=== PATIENT | male | born 1955 | race Caucasian/White ===

== ENCOUNTER → 2020-10-23 14:38 | Outpatient (CLI) | payer BC, SELFPAY ==
--- NOTE | ~2020-10-23 | XR_ITS ---
EXAMINATION: XR elbow RT min 3V DATE: 10/23/2020 14:54 INDICATION: Right elbow pain TECHNIQUE: Anteroposterior, two oblique and lateral views of the right elbow were obtained. COMPARISON: None. FINDINGS: Alignment is normal. No fracture or joint effusion. Joint spaces are normal. Small enthesophyte at th e tip of the olecranon. Soft tissues are unremarkable. IMPRESSION: 1. No right elbow joint effusion or acute osseous abnormality. Reviewed, dictated and finalized at location B. ETING OPERATIONS INTERN
== END ==
PROVIDERS: PCP Physician Assistant; Visit Provider Physician Assistant
DX: M25.521 Pain in right elbow (principal)
CPT/HCPCS: 73080

== ENCOUNTER 2023-05-21 08:42 | Outpatient (CLI) | payer MEDICARE, SELFPAY | END 2023-05-21 08:43 | disposition home or self-care (01) | LOC: ANHSURGERY 08:46 | PROVIDERS: PCP Physician Assistant; Visit Provider Surgery | DX: K43.2 Incisional hernia without obstruction or gangrene (principal); Z01.818 Encounter for other preprocedural examination | CPT/HCPCS: 36415; 86850; 86900; 86901 ==

== ENCOUNTER 2023-05-30 01:16 | Day surgery (SDC) | payer MEDICARE, SELFPAY ==
[2023-05-20 13:54] VITALS: BMI 21.8
--- NOTE | 2023-05-20 14:18 | PC.NURSE ---
Report to the Outpatient Waiting Room, entrance under the green pavilion located off [facility], at time __10:30AM on date __05/30/23 . Planned Procedure Time: __12:30PM . Time changes happen often and if your time is changed the preop area will call you the afternoon before. - You and your visitor will be asked to self-screen and do not enter if you have any COVID symptoms. - A mask is optional within the hospital at this time. Patients may have clear liquids (water, carbonated beverages, clear teas, apple juice) until 3 hours prior to surgery with a maximum of 20 ounces. - No food from midnight until time of surgery. Take the following medications with a SIP of water the morning of surgery: ___NONE DO NOT STOP ANY OF YOUR OTHER PRESCRIPTION MEDICATIONS PRIOR TO SURGERY ?EXCEPT THE FOLLOWING Medications to discontinue per physician ___HOLD ALL VITAMINS/SUPPLEMENTS 3 DAYS PRE-OP PER ANESTHESIA Date to take last dose 05/26/23 Please no make-up, nail korean, hairspray, perfume, deodorant, or body powder the day of surgery. No jewelry (including any body piercings) or valuables the day of surgery, leave them at home. Please take a shower or bath the night before, or the morning of, surgery with an antibacterial soap. Wear comfortable, loose fitting clothing. Children are encouraged to wear pajamas. - Jewelry must be removed prior to entering the operating room. Rings and piercings that are not removed may be cut off. - The hospital will not accept responsibility for valuables. - Please leave all valuables, including medications, at home the day of surgery. If you are going home after surgery, a licensed emergency medical technician/driver must drive you home. - NO public transportation without another adult if you receive anesthesia. - We recommend that an adult stay with you for 24 hours following discharge. - We also recommend that you do not drive, make important decision, drink alcoholic beverages, or take any drugs that were not prescribed by your health care provider for at least 24 hours after your discharge time. Follow any additional instructions given to you from your surgeon. If you or anyone in your household have experienced Covid symptoms in the past week, please notify your surgeon or the nurse liaison at the phone number below for possible testing. Telephone instructions given to __PATIENT and asked if any additional questions and then verbalized understanding. Patient advised to call surgeon office or pre surgery nurse liaison [phone] if any additional questions.
[2023-05-30] VITALS (7 sets, daily range): BP systolic 101–139; BP diastolic 73–87; PULSE 84–96; RESP 12–16; TEMP 36.2–36.5; O2SAT 98–100
[2023-05-30] MEDS: ACETAMINOPHEN 500 MG TABLET 1000 MG PO (11:00)
[2023-05-30] MEDS: KETOROLAC 15 MG/ML VIAL (*BKC) IV PUSH (11:00)
[2023-05-30] MEDS: LACTATED RINGERS 1,000 ML 30 ML IV CONT (11:00)
--- NOTE | 2023-05-30 11:48 | PM.IMHP ---
H&P: HPI History of Present Illness Date/Time: 05/30/23 11:48 Chief Complaint: Incisional hernia Narrative: Ms. Prado returns to the office for recheck of a incisional hernia.? No changes to the hernia since his last visit.? He continues to wear a abdominal binder for support.? No abdominal distension, N/V, or change in bowel habits.? 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 He was recently found to have h.Pylori and is being treated with omeprazole , Carafate, Amoxicillin, and clarithromycin. Review of Systems Review of Systems: The remainder of the review of systems to include constitutional, HEENT, cardiovascular, respiratory, GI, , integumentary, musculoskeletal, endocrine, immunologic, hematologic, psychiatric, and neurologic are all negative except for which is mentioned above in the HPI. [facility] Past Medical History Medical History Prostate cancer Surgical History Surgical History History of back surgery 2018 History of hip surgery 2015 History of intestinal surgery 1996 - tx for small bowel obstruction History of prostate surgery 2019 Hx of shoulder surgery 2016 Family History Family History Other COPD (chronic obstructive pulmonary disease) Social History Social History Smoking status: Never smoker Alcohol intake: current Drinks per week: 2 Substance use: never Living arrangements: alone Spiritual care concerns: No Meds Home Medications and Allergies Home Medications Medication Instructions Recorded Confirmed Type cholecalciferol (vitamin D3) 50 50 mcg PO DAILY 11/20/22 05/20/23 History mcg (2,000 unit) capsule glucosamine sulfate 500 mg tablet 500 mg PO DAILY 11/20/22 05/20/23 History (Glucosamine) multivitamin 1 tablet PO DAILY 11/20/22 05/20/23 History Allergies Allergy/AdvReac Type Severity Reaction Status Date / Time No Known Allergies Allergy Verified 05/20/23 13:52 Exam Const: General: comfortable and no acute distress HENMT: Ears: TM's normal bilaterally Face/Nose/Sinus: Normal nares present Mouth: Yes moist mucous membranes Eyes: General: appearance normal, both eyes and all related structures Sclera: sclerae normal Pupils: Equal, round and reactive pupils present EOM: EOMs intact bilaterally Neck: Neck: supple and no JVD Resp: Effort & Inspection: normal respiratory effort Auscultation: clear to auscultation bilaterally Cardio: Rate: regular rate Rhythm: regular rhythm GI: Other: Soft, nondistended.? There is a palpable supraumbilical at the superior part of old midline scar. Defect measuring 3cm. Skin: General skin exam: no rashes or lesions noted Wounds: no wounds Neuro: General: gait normal Speech: normal speech Motor exam (neuro): 5/5 motor strength present throughout Sensory Exam: normal sensation Extrem: General: normal to inspection Psych: Mental Status: mental status grossly normal Affect: normal affect Assessment and Plan Assessment and plan (1) Incisional hernia without mention of obstruction or gangrene: Qualifiers: Obstruction and gangrene presence: without obstruction or gangrene Qualified Code(s): K43.2 - Incisional hernia without obstruction or gangrene Code(s): K43.2 - Incisional hernia without obstruction or gangrene Status: Acute Assessment and Plan: Patient has adequately recovered after recent stem cell injection for arthritis in his hips.? Will proceed now with scheduling him for robotic assisted laparoscopic incisional hernia repair with mesh to be performed in the OR under general anesthesia as an outpatient.? The surgery was discussed in detail including description, risks, benefits, the
--- NOTE | 2023-05-30 11:51 | WPDHPUPDATE1 ---
History and Physical Update Update Date/Time: 05/30/23 11:51 History and Physical has been reviewed, including an updated exam of the patient. There are NO changes in the patient's condition. Risks, benefits, and alternatives have been discussed and questions answered. Patient agrees to proceed with procedure.
--- NOTE | 2023-05-30 13:06 | WPDANESEPPF ---
Anes - Initial Pre Proc Eval Procedure: Operation Date: 05/30/23 12:30 Proposed Procedures p Robotic Assisted Laparoscopic Incisional Hernia Repair with Mesh - Sachin Hanna MD Date/Time: 05/30/23 13:06 Surgeon: Sachin Hanna MD Pre Op Diagnosis: Reducible Incisional Hernia Patient Data Age: 68 Gender: M Height: 1.83 m Weight: 71.8 kg Last Vital Signs Temp 36.2 C L 05/30/23 12:28 Pulse 88 05/30/23 12:28 Resp 14 05/30/23 12:28 BP 101/73 05/30/23 12:28 Pulse Ox 98 05/30/23 12:28 O2 Del Method Room Air 05/30/23 12:28 Allergies Allergy/AdvReac Type Severity Reaction Status Date / Time No Known Allergies Allergy Verified 05/30/23 12:33 Home Medications Medication Instructions Recorded Confirmed Type cholecalciferol (vitamin D3) 50 50 mcg PO DAILY 11/20/22 05/20/23 History mcg (2,000 unit) capsule glucosamine sulfate 500 mg tablet 500 mg PO DAILY 11/20/22 05/20/23 History (Glucosamine) multivitamin 1 tablet PO DAILY 11/20/22 05/20/23 History Patient hx anesthesia problems: none Family hx anesthesia problems: none Results Review: All pre-operative results and documents have been reviewed as part of the pre-operative evaluation. [facility] Past Medical History Medical History Prostate cancer Surgical History Surgical History History of back surgery 2018 History of hip surgery 2015 History of intestinal surgery 1995 - tx for small bowel obstruction History of prostate surgery 2019 Hx of shoulder surgery 2016 Family History Family History Other COPD (chronic obstructive pulmonary disease) Social History Social History Smoking status: Never smoker Alcohol intake: current Drinks per week: 2 Substance use: never Living arrangements: alone Spiritual care concerns: No Anes - Eval Final PreProcedure Day of Procedure 05/30/23 13:06 Patient weight: normal Heart: regular rate and rhythm Lungs: clear to auscultation Airway: Mallampati scale class II Neurological: alert and oriented Last oral intake: >/= 8 hours ASA classification: II Emergent: no Anesthetic plan: proceed Anesthesia type and monitoring: general ETT and standard monitoring Results Review: All pre-operative results and documents have been reviewed as part of the pre-operative evaluation. Informed Consent: The patient's anesthetic plan and its attendant risks and benefits were discussed with the patient/family/POA. Questions were solicited and answers provided to the satisfaction of the patient/family/POA.
[2023-05-30] MEDS: ceFAZolin 2 GM/D5W 50 ML 2 GM/50 ML BAG IVPB (13:35)
[2023-05-30] MEDS: LIDO 1%/EPINEPHRINE 1:100,000 50 ML VIAL 15 ML INFILTRATE (14:08)
[2023-05-30] MEDS: BUPivacaine HCL 0.5% 10 ML AMP 15 ML INFILTRATE (14:08)
--- NOTE | 2023-05-30 15:26 | W.PM.PROC2 ---
Procedure Note - Detailed Date of Procedure 05/30/23 Pre-op Diagnosis Incisional Hernia Post-op Diagnosis Other (Incarcerated periumbilical incisional hernia.) Procedure Performed Robotic assisted laparoscopic incarcerated periumbilical ventral hernia repair with Bard Ventralight ST mesh.(hernia defect 3.5 x 2.5 cm) Surgeon Sachin Hanna MD Belt Worker [facility] Anesthesia General Indications Patient is 68-year-old gentleman who previously had a midline laparotomy incision for bowel obstruction a small-bowel resection. More recently he underwent a robotic assisted laparoscopic prostatectomy for prostate cancer. The midline incision in the periumbilical region has an incisional hernia and presents now for robotic assisted laparoscopic repair of the incisional hernia with mesh reinforcement. Findings Incarcerated within the hernia defect was preperitoneal fat and falciform ligament as well as small amount of omentum. No bowel was incarcerated. Defect itself measured 3.5cm in length by 2.5cm in width. Description of Procedure After informed consent was obtained patient brought to the operating room was placed supine position and general endotracheal anesthesia was administered. The abdomen was then prepped and draped usual sterile fashion. A time-out was then performed correctly identifying the patient as well as procedure to be performed. He was given perioperative IV antibiotics. I then entered the abdomen the left upper quadrant utilizing a 10mm Optiview port. Once inside the abdomen insufflated to adequate pneumoperitoneum of 15mmHg of CO2. Looking into the periumbilical region of the abdomen there were omental adhesions to the area of the hernia. There is no evidence of bowel involvement within the hernia. I then placed additional robotic 8mm trocar port along the left lateral abdominal wall under direct visualization. Today Maribell robot was then brought to the patient's bedside on the right side then docked. The robotic arms were then attached the robotic ports without difficulty. Robotic instruments were then advanced into the abdomen out difficulty under direct observation. I then scrubbed out of the procedure and sat down at the robotic console to perform the dissection robotically. Utilizing robotic hook cautery I then took down the adhesions of the omentum to the hernia defect. There is also some preperitoneal fat and a portion of the falciform ligament herniated within the defect. The incarcerated omentum was viable. Once I had all the incarcerated contents out of the hernia defect I then measured the defect and it was 3.5cm in length by 2.5cm in width. I then achieved hemostasis on the omentum and then proceeded to dissect the falciform ligament away from the anterior abdominal wall so could have a landing spot for the mesh. I then measured and felt that a Ventralight ST mesh measuring 15cm in length by 10cm in width would adequately cover the defects when placed in a intraperitoneal onlay fashion. I then closed the defect utilizing a #1 Stratafix PDS suture. The defect closed nicely without any tension. The Ventralight ST mesh was then introduced through the critical care physician assistant port. The mesh had a echo positioning device attached there is allowed the mesh to fold in a flat configuration easily. The suture in the middle portion of the mesh was then pulled transfascially with a suture assist device centering the mesh on the closed defect. The mesh was oriented such that the long axis of the mesh was parallel to the long axis of the abdomen. The prosthetic surface of the mesh was in contact with the undersurface of the anterior abdominal wall and barrier surface mesh was facing the intra-abdominal viscera. The mesh was placed in a intraperitoneal onlay fashion. I then circumferentially fixated the mesh to the undersurface of the anterior abdominal wall utilizing a running 2 0 V- lock suture. The mesh was secured with a small amount of tension
[2023-05-30] MEDS: fentaNYL CITRATE INJ (*CRX) 100 MCG/2 ML VIAL 25 MCG IV PUSH ×3 (15:43→16:09)
[2023-05-30] MEDS: oxyCODONE HCL (*CRX) 5 MG TAB IR PO (16:40)
== END 2023-05-30 17:28 | disposition home or self-care (01) ==
PROVIDERS: PCP Physician Assistant; Visit Provider Surgery
PROC: (CPT 49594; principal; 2023-05-30 12:30)
DX: K43.0 Incisional hernia with obstruction, without gangrene (principal); Z85.46 Personal history of malignant neoplasm of prostate
CPT/HCPCS: 49594; S2900; 36415; 86850; 86900; 86901; A9270; C1781; J0330; J0690; J1100; J1170; J1885; J2250; J2405; J2704; J3010; J7120

== ENCOUNTER 2023-07-26 11:26 | Emergency (ER) | payer MEDICARE, SELFPAY ==
[2023-07-26] VITALS (21 sets, daily range): BP systolic 114–150; BP diastolic 77–92; PULSE 70–100; RESP 14–20; TEMP 37; O2SAT 91–98
--- NOTE | ~2023-07-26 | XR_ITS ---
XR abdomen/kub 1V 07/26/2023 13:23 Indication: Abdomen pain Procedure: KUB Comparison: 06/27/2016 Findings: Bowel gas pattern nonobstructive. Moderate colonic fecal loading. There are pedicle screws at L5-S1. There are pelvic phleboliths on the right. No definite nephrolithiasis. Osteopenia. Mild cameron mbar spondylosis. Impression: 1: No acute abdominal abnormality. Reviewed, dictated and finalized at location A. NESS ADMINISTRATION INSTRUCTOR Impression: 1: No acute abdominal abnormality.
--- NOTE | 2023-07-26 12:36 | ED.GENADULT ---
HPI - General Adult General Chief complaint: Abdominal Pain Stated complaint: bloating, SOB r/t full abdomen Time Seen by Provider: 07/26/23 12:32 Source: patient Limitations: no limitations History of Present Illness HPI narrative: This is a 68 yo male who presents with complaint of nausea and epigastric abdominal pain with bloating and belching. He reports never having an EGD but had a colonoscopy last year. He has had decreased appetite. Last oral intake this morning. LBM was this morning during which he passed a small non bloody stool. Continues to pass flatus. No fevers. Patient was diagnosed with H. pylori and completed triple therapy with clarithromycin, amoxicillin and Prilosec. He continues to have symptoms despite this. He has an appointment to see Dr Reyes (GI) on Friday. Hx of robotic assist laparoscopic surgery for incarcerated pariumbilical hernia 05/30/23 with Sachin Hanna. He feels he is constipated and has been using 2 glasses of prune juice and Ducolax every morning as well as probiotics. He does have a history of travel throughout [place], [facility] and the [place] and ans a known history of liver cysts. He was seen 2 days ago at [facility] and underwent lab work and CT scan. Related Data Home Medications Medication Instructions Recorded Confirmed cholecalciferol (vitamin D3) 50 50 mcg PO DAILY 11/20/22 07/09/23 mcg (2,000 unit) capsule glucosamine sulfate 500 mg tablet 500 mg PO DAILY 11/20/22 07/09/23 (Glucosamine) multivitamin 1 tablet PO DAILY 11/20/22 07/09/23 Allergies Allergy/AdvReac Type Severity Reaction Status Date / Time No Known Allergies Allergy Verified 07/26/23 11:27 [facility] Past Medical History Medical History Liver cyst Prostate cancer Surgical History Surgical History History of back surgery 2018 History of hernia repair Robotic assisted laparoscopic incarcerated periumbilical ventral hernia repair with Bard Ventralight ST mesh.(hernia defect 3.5 x 2.5 cm) on 05/30/23 SAW History of hip surgery 2015 History of intestinal surgery 1996 - tx for small bowel obstruction History of prostate surgery 2019 Hx of shoulder surgery 2016 Family History Family History (Updated 07/26/23 @ 13:45 by Oliva Akers MD) Mother COPD (chronic obstructive pulmonary disease) Social History Social History Smoking status: Never smoker Alcohol intake: current Drinks per week: 2 Substance use: never Living arrangements: alone Spiritual care concerns: No Exam Narrative: GENERAL: Well-appearing, well-nourished, and in no acute distress. HEAD: Normocephalic, atraumatic. EYES: Sclera non injected or icteric ENT: Nares clear, no rhinorrhea or epistaxis. NECK: Supple. CHEST: Speaking in full sentences. No respiratory distress. HEART: Regular rate and rhythm. ABDOMEN: Soft, distended, mild tenderness to palpation at epigastrium. Normal active bowel sounds. Frequent eructation during exam. EXTREMITIES: Normal range of motion. No edema. SKIN: Warm, dry, no rash. NEURO: No focal deficits. Alert and oriented x3. PSYCH: Normal mood and affect. Course Vital Signs Vital signs: Vital Signs Temperature 98.6 F 07/26/23 11:37 Pulse Rate 93 07/26/23 11:37 Respiratory Rate 14 07/26/23 11:37 Blood Pressure 150/92 H 07/26/23 11:37 Pulse Oximetry 98 07/26/23 11:37 Temperature 98.6 F 07/26/23 11:37 Pulse Rate 74 07/26/23 16:16 Respiratory Rate 18 07/26/23 16:16 Blood Pressure 118/80 07/26/23 16:16 Pulse Oximetry 96 07/26/23 17:00 Medical Decision Making [facility] Narrative Medical decision making narrative: This is a 68 yo who presents with bloating and nausea and frequent belching. History of abdominal surgery as above as well as treated for H p
--- NOTE | 2023-07-26 12:59 | ECG_ITS ---
Measurements Intervals Burns Rate: 93 P: 52 NC: 161 QRS: 38 QRSD: 94 T: 42 QT: 360 QTc: 448 Interpretive Statements SINUS RHYTHM RSR' V1 NORMAL ECG NO PREVIOUS ECG AVAILABLE FOR COMPARISON Electronically Signed On 07-26-2023 14:14:01 STANDARDS ANALYST by Philipp Rasheed M.D.
[2023-07-26 13:25] LABS: Basophils Percent Auto 0.7 % (0.2-1.2); Eosinophils Absolute Auto 0.1 K/mm3 (0-0.3); Eosinophils Percent Auto 2.2 % (0-4.4); Hemoglobin 15.3 g/dL (14.0-18.0); Lymphocytes Absolute Auto 0.96 K/mm3 (0.9-3.2); Lymphocytes Percent Auto 23.6 % (18.3-44.2); Mean Corpuscular HGB Conc 33.3 g/dl (32-36); Mean Corpuscular Hemoglobin 31.1 pg (26-34); Mean Corpuscular Volume 93.5 fl (80-100); Mean Platelet Volume 9.1 fl (7.4-10.4); Monocytes Absolute Auto 0.4 K/mm3 (0.1-0.6); Monocytes Percent Auto 10.1 % (2.6-8.5); Neutrophils Absolute Auto 2.6 K/mm3 (1.3-6.7); Neutrophils Percent Auto 63.4 % (45.5-73.1); Platelet Count Result 203 k/mm3 (150-375); Red Blood Count 4.92 M/mm3 (4.6-6.20); Red Cell Distribution Width 13.1 % (11.5-14.5); White Blood Count 4.1 K/mm3 (4.5-10.0)
[2023-07-26 13:31] LABS: Appearance Urine Cloudy (Clear); Bacteria Urine None Seen /hpf; Bilirubin Urine Negative (Negative); Blood Urine Negative (Negative); Color Urine Yellow (Yellow); Glucose Urine UA Negative (Negative); Ketones Urine Negative (Negative); Leukocyte Esterase Ur Negative LEU/UL (Negative); Nitrate Urine Negative (Negative); Non Pathogenic Casts 0-2; Protein Urine Negative (Negative); RBC Urine 0-2 /hpf (0-2); Specific Grav Ur 1.007 (1.001-1.035); Squamous Epithelial Cell Urine None seen /hpf (Few); Urobilinogen Urine 0.2 mg/dL (<2.0); WBC Urine 0-5 /hpf; pH Urine 6.5 (5.0-9.0)
[2023-07-26 13:38] LABS: Alanine Aminotransferase 30 U/L (6-50); Albumin Level 4.5 g/dL (3.5-5.1); Alkaline Phosphatase 103 U/L (38-126); Anion Gap 8 mmol/L (8-16); Aspartate Amino Transferase 36 U/L (17-59); Bilirubin,Total 0.6 mg/dL (0.2-1.3); Blood Urea Nitrogen 11 mg/dL (9-20); Calcium 9.2 mg/dL (8.4-10.2); Carbon Dioxide 29 mmol/L (22-30); Chloride 101 mmol/L (98-107); Estimated CRCL calculation 95 ml/min; Estimated Glomerular Filt Rate > 60; Glucose 92 mg/dL (65-110); Lipase 102 U/L (23-300); Potassium 4.7 mmol/L (3.4-5.0); Sodium 138 mmol/L (137-145)
[2023-07-26] MEDS: SODIUM CHLORIDE 0.9% IV 1,000 ML 999 ML IV CONT (13:43)
[2023-07-26] MEDS: ONDANSETRON INJ 4 MG/2 ML VIAL IV PUSH (13:43)
[2023-07-26 13:46] LABS: Add Urine Microscopic? YES
[2023-07-26 13:48] LABS: Troponin I < 0.012 ng/mL (0.000-0.034)
[2023-07-26] MEDS: BELLADONNA ALK/PHENOB ELIX 10 ML, MAG HYDROX/ALUMINUM HYD/SIMETH 30 ML, LIDOCAINE HCL 2... PO (15:01)
== END 2023-07-26 17:15 | disposition home or self-care (01) ==
PROVIDERS: Emergency Provider Student in an Organized Health Care Education/Training Program; PCP Physician Assistant
DX: K30 Functional dyspepsia (principal); K59.00 Constipation, unspecified; Z85.46 Personal history of malignant neoplasm of prostate
CPT/HCPCS: 36415; 74018; 80053; 81001; 82248; 83690; 84484; 85025; 93005; 96361; 96374; 99284; A9270; J2405; J7030

== ENCOUNTER 2023-08-11 07:00 | Outpatient (NON) | payer MEDICARE, SELFPAY | END 2023-08-11 07:01 | disposition home or self-care (01) | LOC: ANHLAB 08-12 14:06 | PROVIDERS: PCP Physician Assistant; Visit Provider Internal Medicine Gastroenterology | DX: M62.08 Separation of muscle (nontraumatic), other site (principal) | CPT/HCPCS: 88305 ==

== ENCOUNTER 2023-08-11 07:02 | Day surgery (SDC) | payer MEDICARE, SELFPAY ==
[2023-08-05 08:37] VITALS: BMI 22.3
[2023-08-05 13:56] VITALS: BMI 22.4
--- NOTE | 2023-08-08 15:06 | PM.HPGS ---
History of Present Illness History of Present Illness Consent: Risks, benefits, and alternatives have been discussed and questions answered. Patient agrees to proceed with procedure. Chief complaint: LT Upper Quad.Pain, ABD Distention Gaseous Narrative: Juan Prado is a 68 year old male with hx of IBS, liver cyst, prostate cancer s/p prostatectomy, laparoscopic incisional kym-umbilical hernia repair 05/30/2023, SBO was seen in office for c/o of LUQ pain and bloating that has been ongoing for the past 2 months. symptoms are worse after eating. he reports associated nausea and belching but no vomiting.? He was dx with H.pylori 3-4 months ago per breathe test and was treated with omeprazole , Carafate, Amoxicillin, and clarithromycin. During that time his bloating symptoms resolved and had regular stools but states symptoms returned after completion of h. pylori therapy. Reports having discomfort in LUQ with associated bloating and belching. A CT scan done 9 months ago was unremarkable for any acute abdominal problems. Review of Systems Review of Systems: All systems reviewed & are unremarkable except as noted in HPI and below PMFSH Past Medical History Medical History Abdominal bloating Frequent loose stools H. pylori infection Left upper quadrant pain Liver cyst Prostate cancer Surgical History Surgical History History of back surgery 2018 History of hernia repair Robotic assisted laparoscopic incarcerated periumbilical ventral hernia repair with Bard Ventralight ST mesh.(hernia defect 3.5 x 2.5 cm) on 05/30/23 SAW History of hip surgery 2015 History of intestinal surgery 1996 - tx for small bowel obstruction History of prostate surgery 2019 Hx of shoulder surgery 2016 Family History Family History Mother COPD (chronic obstructive pulmonary disease) Social History Social History Smoking status: Never smoker Alcohol intake: former Drinks per week: 2 Substance use: never Substance use type: does not use Living arrangements: alone Spiritual care concerns: No Meds Home Medications and Allergies Home Medications Medication Instructions Recorded Confirmed Type multivitamin 1 tablet PO DAILY 11/20/22 08/11/23 History omeprazole 20 mg capsule,delayed See Rx Instructions .Route 07/30/23 08/11/23 Rx release .COMPLEX #90 caps dicyclomine 20 mg tablet 20 mg PO DAILY 08/05/23 08/11/23 History Allergies Allergy/AdvReac Type Severity Reaction Status Date / Time No Known Allergies Allergy Verified 08/11/23 08:16 Exam Const: General: alert Orientation/consciousness: patient oriented x3 Resp: Auscultation: clear to auscultation bilaterally Cardio: Rhythm: regular rhythm GI: GI Palp: Yes Soft to palpation and No Tenderness to palpation present (GI) Neuro: General: patient oriented x3 Assessment and Plan Assessment and plan (1) Left upper quadrant pain: Code(s): R10.12 - Left upper quadrant pain Status: Acute Assessment and Plan: EGD with possible biopsy or dilatation or cautery.
--- NOTE | 2023-08-11 06:48 | P.PNAN_ITS ---
Anes - Initial Pre Proc Eval Procedure: Operation Date: 08/11/23 09:30 Proposed Procedures p Esophagogastroduodenoscopy - Lloyd Hilario MD Date/Time: 08/11/23 06:48 Surgeon: Lloyd Hilario MD Pre Op Diagnosis: LT Upper Quad.Pain, ABD Distention Gaseous Patient Data Age: 68 Gender: M Height: 1.83 m Weight: 75 kg Allergies Allergy/AdvReac Type Severity Reaction Status Date / Time No Known Allergies Allergy Verified 08/11/23 08:16 Home Medications Medication Instructions Recorded Confirmed Type multivitamin 1 tablet PO DAILY 11/20/22 08/11/23 History omeprazole 20 mg capsule,delayed See Rx Instructions .Route 07/30/23 08/11/23 Rx release .COMPLEX #90 caps dicyclomine 20 mg tablet 20 mg PO DAILY 08/05/23 08/11/23 History Patient hx anesthesia problems: none Family hx anesthesia problems: none Results Review: All pre-operative results and documents have been reviewed as part of the pre- operative evaluation. [facility] Past Medical History Medical History Abdominal bloating Frequent loose stools H. pylori infection Left upper quadrant pain Liver cyst Prostate cancer Surgical History Surgical History History of back surgery 2018 History of hernia repair Robotic assisted laparoscopic incarcerated periumbilical ventral hernia repair with Bard Ventralight ST mesh.(hernia defect 3.5 x 2.5 cm) on 05/30/23 SAW History of hip surgery 2015 History of intestinal surgery 1995 - tx for small bowel obstruction History of prostate surgery 2019 Hx of shoulder surgery 2016 Family History Family History Mother COPD (chronic obstructive pulmonary disease) Social History Social History Smoking status: Never smoker Alcohol intake: former Drinks per week: 2 Substance use: never Substance use type: does not use Living arrangements: alone Spiritual care concerns: No Anes - Eval Final PreProcedure Day of Procedure 08/11/23 06:48 Patient weight: normal Heart: regular rate and rhythm Lungs: clear to auscultation and normal air movement Airway: Mallampati scale class II Neurological: alert and oriented Last oral intake: >/= 8 hours ASA classification: III Emergent: no Anesthetic plan: proceed Anesthesia type and monitoring: general GIVS and standard monitoring Results Review: All pre-operative results and documents have been reviewed as part of the pre- operative evaluation. Informed Consent: The patient's anesthetic plan and its attendant risks and benefits were discussed with the patient/family/POA. Questions were solicited and answers provided to the satisfaction of the patient/family/POA.
[2023-08-11 08:18] VITALS: BP 118/85; PULSE 97; RESP 16; TEMP 36.8; O2SAT 96; BMI 22.0
[2023-08-11] MEDS: LACTATED RINGERS 1,000 ML 150 ML IV CONT (08:32)
[2023-08-11 09:32] VITALS: BP 95/74; PULSE 96; RESP 16; O2SAT 98
[2023-08-11 09:42] VITALS: BP 109/83; PULSE 87; RESP 20; O2SAT 98
[2023-08-11 09:52] VITALS: BP 115/80; PULSE 85; RESP 20; O2SAT 99
--- NOTE | 2023-08-11 11:14 | WPDANESPN ---
Anes - Prog Note Post-Op Date/Time: 08/11/23 11:14 Cardiovascular status: normal Respiratory status: normal Airway patency: baseline Mental status: baseline Post-Op hydration status: normal Vital Signs: Last Vital Signs Temp 36.8 C 08/11/23 08:18 Pulse 85 08/11/23 09:52 Resp 20 08/11/23 09:52 BP 115/80 08/11/23 09:52 Pulse Ox 99 08/11/23 09:52 O2 Del Method Room Air 08/11/23 09:52 Pain Score (VAS): 0 I/O: Intake & Output 08/10/23 08/11/23 08/11/23 23:59 07:59 15:59 Intake Total 500 Balance 500 Post-procedural complaints: none Patient Feedback: Patient satisfied with anesthetic care. Other Findings: Patient vital signs back to baseline. Patient denies nausea and vomiting. Patient's pain under control. Patient OK for discharge.
== END 2023-08-11 10:02 | disposition home or self-care (01) ==
PROVIDERS: PCP Physician Assistant; Visit Provider Internal Medicine Gastroenterology
PROC: 0DJ08ZZ Inspection of Upper Intestinal Tract, Via Natural or Artificial Opening Endoscopic (ICD-10-PCS; CPT 43235; principal; 2023-08-11 09:30)
DX: R10.12 Left upper quadrant pain (principal); K21.9 Gastro-esophageal reflux disease without esophagitis; K22.2 Esophageal obstruction
CPT/HCPCS: 43239

== ENCOUNTER 2023-08-14 08:19 | Outpatient (CLI) | payer MEDICARE, SELFPAY ==
--- NOTE | ~2023-08-14 | MR_ITS ---
EXAMINATION: MR abdomen wo/w con INDICATION: Other specified disorders of the liver TECHNIQUE: Coronal SSFSE ARC, WATER:coronal LAVA-FLEX, Coronal 2D FIESTA FatSat, Axial SSFSE BH ARC, Axial 3D DualEcho BH, Axial SSFSE-IR, Axial DWI b=500, Axial 2D FIESTA FatSat, pre and dynamic postco ntrast Axial LAVA ARC, postcontrast Coronal In and Opposed phase LAVA FLEX COMPARISON: 12/09/2022 CONTRAST: Multihance, 15 cc FINDINGS: There are multiple cysts of the liver which measure up to 3.4 cm in liver segment /VII. S ome demonstrate slight increase in size but no suspicious change. The spleen, pancreas, gallbladder, and adrenal glands are normal. There are peripelvic cysts of the kidneys. No pathologically enlarged abdominal lymph nodes are identified. There are no dilated loops of bowel. No abnormal enhancement is present after contrast administration. IMPRESSION: 1. Multiple benign liver cysts without suspicious interval change. Reviewed, dictated and finalized at location L. [employer]
== END 2023-08-14 08:20 | disposition home or self-care (01) ==
PROVIDERS: PCP Physician Assistant; Visit Provider Nurse Practitioner Family
DX: K76.89 Other specified diseases of liver (principal)
CPT/HCPCS: 74183; A9577

== ENCOUNTER 2024-01-01 13:19 | Outpatient (CLI) | payer MEDICARE, SELFPAY ==
--- NOTE | ~2024-01-01 | MR_ITS ---
EXAMINATION: MR hip LT w con DATE: 01/01/2024 15:48 INDICATION: Left hip pain. TECHNIQUE: Magnetic resonance imaging (MRI) of the left hip was performed without intravenous contras t after intra-articular injection of contrast (MR arthrogram). COMPARISON: None FINDINGS: Bones/cartilage: Alignment is normal. No fracture. There are changes of posterior fusion procedure at L5-S1. There is severe lumbar spondylosis. Right hip joint demonstrates partial-thickness cartilage loss, deep barber shop manager iorly. There are osteophytes at the right hip joint. There is mild subchondral edema-like marrow sign al intensity in anterior superior right acetabulum. Small [id number] images of left hip demonstrat e partial thickness cartilage loss, deep at the anterior superior hip joint. There are subchondral cy sts in superior left glenoid. Left hip osteophytes are noted. Labrum: There is a tear of the left acetabular labrum. Fluid: There is no right hip joint effusion. There is mild bilateral trochanter bursitis. Soft tissues: The hamstring tendon origins are normal. The iliopsoas tendons are normal. There is mild bilateral gl uteus medius and minimus tendinopathy. The gluteus medius tendons are normal. IMPRESSION: 1. Moderate chondrosis of the hips. Reviewed, dictated and finalized at location A.
--- NOTE | ~2024-01-01 | XR_ITS ---
EXAMINATION: XR fl inj hip LT for MR/CT DATE: 01/01/2024 14:31 INDICATION: Left hip pain. TECHNIQUE: A time-out was performed to verify the patient's name, date of , and procedure to b e performed. The procedure including the risks, benefits, and alternatives was discussed with the pat ient. Risks discussed included bleeding and infection. The patient understood the risks and agreed to proceed. The skin overlying the left hip joint was prepped and draped in usual sterile fashion. Ane sthetic was administered with 1% lidocaine subcutaneously. A 22 G needle was advanced under fluorosc opic guidance into the joint. Subsequently, injectate consisting of 9 mL of 1:200 Multihance, 1:4 1% lidocaine, and 1:4 Omnipaque 240 was instilled. The needle was removed and the entry site was clean ed and dressed. There were no immediate complications. Fluoroscopy exposure time was 0.1 minutes. Th e total number of images was 2. FINDINGS: Real-time fluoroscopy demonstrates the needle and contrast in the left hip joint. IMPRESSION: 1. Successful left hip joint injection of contrast for subsequent MR arthrography. Reviewed, dictated and finalized at location A. IMPRESSION: 1. Successful left hip joint injection of contrast for subsequent MR arthrograp .
== END 2024-01-01 13:20 | disposition home or self-care (01) ==
LOC: ANHIMG 13:25
PROVIDERS: PCP Physician Assistant; Visit Provider Orthopaedic Surgery
DX: M25.552 Pain in left hip (principal)
CPT/HCPCS: 20610; 73722; 77002; A9577; Q9966

== ENCOUNTER 2024-02-04 12:21 | Outpatient (CLI) | payer MEDICARE, SELFPAY ==
--- NOTE | ~2024-02-04 | MR_ITS ---
MRI of the thoracic spine Clinical History: Back pain Technique: Axial T2-weighted and gradient images, and sagittal T1-weighted, T2-weighted, and STIR radha ges were acquired. Following intravenous administration of 15 cc MultiHance gadolinium, T1-weighted f at-sat imaging was performed in the axial and sagittal planes. Findings: There is no acute fracture or subluxation of the thoracic spine. Possible minimal chronic l oss of height of T2. No bone marrow signal abnormality seen. No significant disc bulge or herniation seen at any thoracic level. There is no spinal canal stenosis or cord compression thoracic spine. Neural foramina appear preserved throughout the thoracic spine. No epidural mass or collection seen. Paravertebral soft tissues are unremarkable. No abnormal postcontrast enhancement identified. Impression: No acute abnormality. Suspected minimal chronic loss of height of T2. Reviewed, dictated and finalized at [facility]. Impression: No acute abnormality. Suspected minimal chronic loss of height of T2.
--- NOTE | ~2024-02-04 | MR_ITS ---
MRI of the lumbar spine Clinical History: Back pain Technique: Axial T2-weighted images, and sagittal T1-weighted, T2-weighted, and and T2 fat-sat images were acquired. Following intravenous administration of 15 cc MultiHance gadolinium, T1-weighted fat- sat imaging was performed in the axial and sagittal planes. Findings: No acute fracture identified. There are posterior fusion hardware from L5 to S1 with underl sophia 7 mm anterolisthesis of L5 over S1. There is posterior decompression at L5. There is fusion acro ss L5-S1 disc space with interbody fusion device present. No suspicious bone marrow signal abnormalit y identified. At L1-L2, L2-L3, L3-L4, there is no significant disc bulge or herniation. There are moderate facet bentlye int degenerative changes at these levels. No spinal canal stenosis at these levels. Probable minimal bilateral neural foraminal narrowing at L3-L4. Neural foramina are preserved at L1-L2 and L2-L3. At L4-L5, there is disc bulge with small annular fissure. There is severe facet arthropathy. No centr al canal stenosis. There is severe bilateral neural foraminal compromise. At L5-S1, there is no disc bulge or herniation. No spinal canal stenosis. There is moderate to severe bilateral neural foraminal narrowing. No abnormal postcontrast enhancement identified. Paravertebral soft tissues are unremarkable. Impression: Posterior fusion from L5 to S1, with underlying 7 mm anterolisthesis at this level. Advanced bilateral neural foraminal narrowing at L4-L5 and L5-S1, as detailed above. Reviewed, dictated and finalized at [facility]. Impression: Posterior fusion from L5 to S1, with underlying 7 mm anterolisthesis at this le milton. Advanced bilateral neural foraminal narrowing at L4-L5 and L5-S1, as detailed a lesia.
== END 2024-02-04 12:22 | disposition home or self-care (01) ==
LOC: ANHIMG 12:21
PROVIDERS: PCP Physician Assistant
DX: M54.42 Lumbago with sciatica, left side (principal); G89.29 Other chronic pain; M99.33 Osseous stenosis of neural canal of lumbar region; M43.10 Spondylolisthesis, site unspecified; M47.816 Spondylosis without myelopathy or radiculopathy, lumbar region; M51.36 Other intervertebral disc degeneration, lumbar region; Z98.1 Arthrodesis status
CPT/HCPCS: 72157; 72158; A9577